=== PATIENT | male | born 1955 | race Caucasian/White ===

== ENCOUNTER 2017-10-10 19:29 | Emergency (ER) | payer MEDICARE, MEDICAID, SELFPAY ==
[2017-10-10 19:30] VITALS: BP 167/100; PULSE 65; RESP 20; TEMP 36.9; O2SAT 91; BMI 25.1
--- NOTE | 2017-10-10 19:37 | XR_ITS ---
XR chest portable HISTORY: ITS.REASON: SOA ORDERING PHYSICIAN: Elmer Mojica MD PATIENT AGE: 62 years COMPARISON: 12/01/2016 FINDINGS: The cardiomediastinal silhouette and pulmonary vascularity are within normal limits. There is COPD with chronic coarsening of the bronchovascular markings with pulmonary fibrotic change similar to the previous exam. 10 mm opacity overlies the left lower lung zone at the fifth rib anteriorly and a 6 mm nodular opacity noted in the left upper lobe. These are nonspecific and may be better evaluated with CT . No lobar consolidation or collapse. There is an old right eighth and ninth rib fracture. IMPRESSION: 1. COPD with mild prominence of the interstitium/fibrosis 2. Left upper lobe and left lower lobe nodular opacities. Follow-up CT may be of further value for better characterization.
[2017-10-10 19:54] VITALS: BP 167/100; PULSE 65; RESP 20; O2SAT 93
[2017-10-10 20:01] LABS: Basophils % 0.4 % (0.1-2.0); Eosinophils # 0.3 K/mm3 (0.0-0.4); Eosinophils % 2.9 % (0.1-12.0); Hematocrit 45.5 % (42.0-52.0); Hemoglobin 15.2 g/dL (14.1-18.0); Lymphocytes # 2.6 K/mm3 (0.7-4.5); Lymphocytes % 26.8 K/mm3 (10-50); Mean Corpuscular HGB Conc 33.5 g/dL (31.8-35.4); Mean Corpuscular Hemoglobin 33.2 pg (27.0-31.2); Mean Corpuscular Volume 99.1 fl (80-94); Mean Platelet Volume 7.4 fl (7.4-10.4); Monocytes # 0.7 K/mm3 (0.1-1.0); Neutrophils # 6.1 K/mm3 (1.8-7.8); Platelet Count 186 K/mm3 (142-424); Red Blood Count 4.59 M/mm3 (4.60-6.20); Red Cell Distribution Width 13.1 % (11.5-17.5); White Blood Count 9.7 K/mm3 (4.8-10.8)
[2017-10-10 20:33] LABS: Lactic Acid 2.7 mmol/L (0.4-2.0)
[2017-10-10 20:56] LABS: Alanine Aminotransferase 44 U/L (12-78); Albumin Level 3.6 gm/dL (3.4-5.0); Alkaline Phosphatase 56 U/L (46-116); Anion Gap 10.2 mEq/L (5-15); Aspartate Amino Transferase 28 U/L (15-37); Blood Urea Nitrogen 4 mg/dL (7-18); Calcium 8.7 mg/dL (8.5-10.1); Carbon Dioxide 29 mmol/L (21.0-32.0); Chloride 101 mmol/L (98-107); Creatine Kinase 64 U/L (39-308); Creatinine Clearance Estimated 90 mL/min (0-300); Estimated Glomerular Filt Rate 169 ml/min (>60); GFR (African American) 205 ML/MIN (>60); Globulin 3.7 gm/dl (1.3-3.2); Glucose 99 mg/dL (74-106); Potassium 3.2 mmoL/L (3.5-5.1); Sodium 137 mmol/L (136-145); Total Protein,Serum 7.3 gm/dL (6.4-8.2); Troponin I < 0.02 ng/ml (0.00-0.06)
[2017-10-10 20:58] LABS: CKMB Relative Index 0.8 U/L (0-4.0); Creatine Kinase MB < 0.5 mg/ml (0.0-3.6)
--- NOTE | 2017-10-10 21:33 | [facility].EDSOB ---
ED Disposition Clinical Impression: Acute exacerbation of chronic obstructive airways disease Disposition: Home, Self-Care Condition on Discharge: Good Instructions: DI for Chronic Bronchitis Additional Instructions: fluids and see pcp for follow up Prescriptions: Azithromycin [Zithromax 250mg tab] 250 mg PO DIRECTED #6 tab Benzonatate [Tessalon Perle 100mg Cap] 100 mg PO TID #30 cap predniSONE [Prednisone 20mg Tab] 20 mg PO DAILY #10 tab - Critical Care Critical Care Time: No Attestation: On 10/10/17, the high probability of a clinically significant, sudden or life threatening deterioration of the following system(s) required my full and direct attention, intervention and personal management. The time I documented below is in addition to time spent performing reported procedures but includes the following listed in this critical care notation. Medical Decision Making - Medical Records Medical records reviewed: Yes: I reviewed the patient's medical records. Vital Signs: 10/10/17 19:30 10/10/17 19:54 10/10/17 22:16 Temperature 98.4 F Temperature Source Oral Pulse Rate [Right Brachial] 65 65 68 Respiratory Rate 20 20 Blood Pressure [Right Arm] 167/100 167/100 124/79 Blood Pressure Mean [Right Arm] 122 122 94 Blood Pressure Source [Right Arm] Automatic Cuff Automatic Cuff Automatic Cuff Blood Pressure Position [Right Arm] Sitting Sitting 02 Sat by Pulse Oximetry 91 L 93 L 92 L Oxygen Delivery Method Room Air Nasal Cannula Nasal Cannula Oxygen Flow Rate (LPM) 2 - Lab Data Lab results reviewed: Yes: I reviewed the patient's lab results. Lab Results 10/10/17 19:50: Amylase 27 10/10/17 19:50: Lipase 110 10/10/17 19:51: WBC 9.7, RBC 4.59 L, Hgb 15.2, Hct 45.5, MCV 99.1 H, MCH 33.2 H, MCHC 33.5, RDW 13.1, Plt Count 186, MPV 7.4, Neut % (Auto) 63.0, Lymph % (Auto) 26.8, Blair % (Auto) 7.0, Eos % (Auto) 2.9, Baso % (Auto) 0.4, Neut # (Auto) 6.1, Lymph # (Auto) 2.6, Blair # (Auto) 0.7, Eos # (Auto) 0.3, Baso # (Auto) 0.0 10/10/17 19:51: Sodium 137, Potassium 3.2 L, Chloride 101, Carbon Dioxide 29, Anion Gap 10.2, BUN 4 L, Creatinine 0.50 L, Estimated Creat Clear 90, Estimated GFR 169, Est GFR ( Amer) 205, Glucose 99, Calcium 8.7, Total Bilirubin 1.0, AST 28, ALT 44, Alkaline Phosphatase 56, Total Creatine Kinase 64, CK-MB (CK-2) < 0.5, CK-MB (CK-2) Rel Index 0.8, Troponin I < 0.02, Total Protein 7.3, Albumin 3.6, Globulin 3.7 H, Albumin/Globulin Ratio 1.0 L 10/10/17 19:51: Lactic Acid 2.7 H Result diagrams: 10/10/17 19:51 10/10/17 19:51 Orders (Tests/Meds): ED MEDICATIONS Discontinued Medications Generic Name Dose Route Start Last Admin Trade Name Stivenq PRN Reason Stop Dose Admin Iopamidol 75 ml 10/10/17 22:04 10/10/17 22:06 [id number]; 75ml Vial IV 10/10/17 22:05 75 ml ONCE ONE Administration Sodium Chloride 10 ml 10/10/17 22:04 10/10/17 22:06 Rad-Saline Flush 10ml Syringe IV 10/10/17 22:05 10 ml ONCE ONE Administration ORDERS Category Date Time Status CT abdomen pelvis w con Stat Cat Scan 10/10/17 21:34 Taken Chest XR -- portable [XR chest portable] Stat Exams 10/10/17 19:37 Taken Blood Culture Stat Micro 10/10/17 19:51 Received - Radiology Data #1 Image(s): Chest Image Reviewed: Yes I reviewed the patient's radiology image Preliminary Findings: Abnormal (chronic changes ) - CT Data CT Scan: Abdomen, Pelvis Time Received: 23:[address] Reviewed: Yes: I have viewed the radiologist's interpretation Preliminary Findings: Abnormal (see chart) - ECG Data Tracing #1 I reviewed this ECG and interpreted as documented below: Normal Sinus Rhythm: Yes Ischemic changes: non-specific ST-T wave changes - Eduardo Inquiry Pt receiving controlled substance: No Resp/SOB HPI - General Chief Complaint: Extremity Injury, Upper Stated Complaint: SOA Time Seen by Provider: 10/10/17 21:33 Mode of Arrival: Ambulatory Source
--- NOTE | 2017-10-10 21:34 | CT_ITS ---
CT abdomen pelvis w con CLINICAL INDICATION: Nausea and vomiting with abdominal pain ITS.REASON: abd pain ORDERING PHYSICIAN: Elmer Mojica MD PATIENT AGE: 62 years COMPARISON: None TECHNIQUE: Axial images obtained with sagittal and coronal reformats. PROCEDURE: Oral Contrast: None IV Contrast: 75 mL [id number]. FINDINGS: There are emphysematous changes within the lung bases with mild fibrotic change. A 10 mm opacity is noted in the left lung base posterolaterally nonspecific in the subpleural region. There are coronary artery calcifications. The liver, gallbladder, spleen, adrenal glands, and pancreas have an unremarkable appearance. No obstructing renal or ureteral calculi. No obvious renal mass. Small umbilical hernia containing fat. Nonspecific bowel gas pattern. Scattered colonic diverticulosis. No evidence of diverticulitis or appendicitis. No intestinal obstruction or free air. No pelvic mass, free fluid, or focal inflammatory change. No acute bony anomalies. IMPRESSION: 1. No acute intra-abdominal or pelvic findings. 2. Small fat-containing umbilical hernia. 3. Colonic diverticulosis without diverticulitis. 4. Centrilobular emphysema with mild pulmonary fibrosis and nonspecific 1 cm nodular opacity left lung base laterally. Consider six-month CT follow-up
[2017-10-10 21:48] LABS: Amylase 27 U/L (25-125)
[2017-10-10 21:50] LABS: Lipase 110 u/L (73-393)
[2017-10-10 22:16] VITALS: BP 124/79; PULSE 68; O2SAT 92
[2017-10-10 23:11] LABS: Reflex Lactic Add Lactic Reflex
[2017-10-10 23:41] VITALS: BP 112/84; PULSE 65; RESP 20; TEMP 36.6; O2SAT 96
== END 2017-10-10 23:40 | disposition home or self-care (01) ==
PROVIDERS: Emergency Provider Emergency Medicine
DX: J44.1 Chronic obstructive pulmonary disease with (acute) exacerbation (principal); Z72.0 Tobacco use
CPT/HCPCS: 71045; 74177; 80053; 82150; 82550; 82553; 83605; 83690; 84484; 85025; 87040; 93005; 96374; 96375; 99283; Q9967